=== PATIENT | female | born 1930 | race Caucasian/White ===

== ENCOUNTER → 2018-10-14 | Outpatient (CLI) | payer MEDICARE ==
--- NOTE | 2018-10-15 11:28 | CT ---
EXAM DESCRIPTION: Lumbar Spine: Computed Tomography. CLINICAL HISTORY: 88 years Female LOW BACK PAIN COMPARISON: None Available. TECHNIQUE: Spiral, axial 2.5 x 2.5 mm scans through the lumbarspine without contrast. Change [place] sagittal 2.0 mm Reconstructions. Total Exam DLP: 265.81 mGy-cm. This exam was performed according to our departmental dose-optimization program which includes automated exposure control, adjustment of the mA and/or kV according to patient size and/or use of iterative reconstruction technique; to reduce radiation dose to as low as reasonably achievable (ALARA). FINDINGS: The mid L5-S1 disc space can be visualized on axial series 2, image 67. Bilateral moderate hypertrophic facet arthrosis and flavum ligament thickening. Posterior midline 3 mm disc bulge. AP canal diameter 10 mm. Mild bilateral foraminal narrowing more right than left. L4-L5: Advanced disc space loss mid and right side with moderate disc space loss on the left. Trace retrolisthesis. Posterior disc osteophyte tiny bulge into the canal. Advanced bilateral hypertrophic facet arthrosis and flavum ligament thickening. AP canal diameter 10 mm. Disc is abutting the right subarticular recess and the descending right L5 nerve. Disc osteophyte encroachment on the right foramen with mild to moderate narrowing. Mild narrowing of the left foramen. L3-L4: Trace retrolisthesis with posterior broad-based 4 mm bulge, more to the right of midline. Hypertrophic facet arthrosis and ligament thickening more on the right than left. AP canal diameter 6 mm. Disc bulging effacing the right subarticular recess and impressing on the descending right L4 nerve. Moderate to severe right foraminal narrowing with left foramen patent. L2-L3: Moderate narrowing to the left of midline with disc osteophyte complex encroaching on the left foramen which is moderately narrowed. Posterior disc bulge 5 mm effacing the thecal sac and the left subarticular recess and descending left L3 nerve. Bilateral hypertrophic facet arthrosis and thickening of the ligaments. AP canal diameter 7 mm. Mild narrowing of the right foramen. L1-L2: Minimal disc space loss to the left of midline with small disc osteophyte complex encroaching on the left foramen without stenosis. Right foramen unremarkable. Minimal posterior disc bulge. Bilateral mild hypertrophic facet arthrosis and thickening of the ligaments. AP canal diameter 13 mm. T12-L1: Disc space maintained with no significant disc bulge. Posterior elements unremarkable. Canal and bilateral foramina are patent. T12-L3 dextroscoliosis. Bone density slightly decreased. No compression type vertebral body fractures. 3.5 mm cyst in the upper pole of the right kidney. 3 mm stone in the superior collecting system of the left kidney and similar sized stone in the mid collecting system. Moderate arthroscopic calcification of the abdominal aorta. IMPRESSION: 1. Multiple levels of endplate spondylosis, disc space loss and bulging discs, hypertrophic facet arthrosis and flavum ligament hypertrophy, and bony narrowing of the bilateral foramina. 2. Borderline mild central canal stenosis at L5-S1 is multifactorial. Mild bilateral foraminal narrowing. 3. Advanced spondylosis on the right with disc osteophyte bulge effacing the right subarticular recess and descending right L5 nerve. Multifactorial mild central canal stenosis. Mild to moderate narrowing of the right foramen. 4. Multifactorial severe central canal stenosis at L3-4. Disc osteophyte bulge effacing the right subarticular recess and impressing on the descending right L4 nerve. Moderate to severe right foraminal narrowing. 5. Left posterior disc osteophyte bulge at L2-3 effacing the left subarticular recess and descending left L3 nerve. Moderate to severe multifactorial central canal stenosis. Moderate narrowing of the left foramen. 6. 3.5 mm cyst upper pole right kidney. 2 nonobstructing stones in the left kidney. Electronically signed by: Arnie Belcher MD 10/15/2018 11:27 AM CDT
== END ==
LOC: CT 12:02
PROVIDERS: ATTEND Family Medicine
DX: M47.896 Other spondylosis, lumbar region (principal); M48.062 Spinal stenosis, lumbar region with neurogenic claudication; M48.07 Spinal stenosis, lumbosacral region; M25.78 Osteophyte, vertebrae; N28.1 Cyst of kidney, acquired; N20.0 Calculus of kidney

== ENCOUNTER 2019-11-16 11:24 | Emergency (ER) | payer MEDICARE ==
[2019-11-16] MEDS ORDERED: ASPIRIN TABLET 325 MG TAB PO ONE (11:36)
[2019-11-16] MEDS ORDERED: NITROGLYCERIN 0.4 MG 25 EA TAB SL ONE (11:37)
--- NOTE | 2019-11-16 11:41 | ED.PDOC ---
History of Present Illness - General Time Seen by Provider: 11/16/19 11:36 Source: patient, RN notes reviewed, Vital Signs reviewed Additional Information: 89 -year-old female,, but patient has a pacemaker which was put in because after having a surgery she stated that her heart gave up, the ER because of chest tightness with ideation to the left arm with some headaches nausea and shortness of breath, patient denies fever or chills. Patient was on her way to when the chest tightness began, patient denies previous heart attacks denies any cardiac stents It happened when she was on her way to see the eye doctor pain lasted Less than 20 minutes - History of Present Illness Allergies/Adverse Reactions: Allergies NO KNOWN ALLERGY Allergy (Verified 11/16/19 11:52) Home Medications: Ambulatory Orders Carbidopa/Levodopa 25/250 [Sinemet 25/250] 250 mg PO TID 11/16/19 Levothyroxine Sodium 75 mcg PO DAILY 11/16/19 Meloxicam 7.5 mg PO DAILY 11/16/19 Multiple Vitamin [Multivitamin] 1 tab PO DAILY 11/16/19 Ropinirole Hydrochloride [Ropinirole HCl] 1 mg PO TID 11/16/19 Review of Systems - Review of Systems Constitutional: States: no symptoms reported EENTM: States: no symptoms reported Respiratory: States: short of breath Cardiology: States: chest pain Gastrointestinal/Abdominal: States: nausea, vomiting Genitourinary: States: no symptoms reported Musculoskeletal: States: no symptoms reported Skin: States: no symptoms reported Neurological: States: no symptoms reported, headache Endocrine: States: no symptoms reported Hematologic/Lymphatic: States: no symptoms reported Family Medical History - Family History Mother Family History: Unknown Living Status: Physical Exam - Physical Exam General Appearance: Agitated, Alert, Well Developed, Well Groomed, Well Hydrated, Well Nourished Eyes, Ears, Nose, Throat Exam: PERRL/EOMI, normal ENT inspection, TMs normal Neck: non-tender, full range of motion, supple, normal inspection Respiratory: chest non-tender, lungs clear, normal breath sounds, no respiratory distress, no accessory muscle use Cardiovascular/Chest: normal peripheral pulses, regular rate, rhythm, no edema, no gallop, no JVD, no murmur Peripheral Pulses: radial,right: 2+, radial,left: 2+ Gastrointestinal/Abdominal: normal bowel sounds, non tender, soft, no organomegaly, no pulsatile mass Extremity: normal range of motion, non-tender, normal inspection, no pedal edema, no calf tenderness Neurologic: yacht hand II-XII nml as tested, no motor/sensory deficits, alert, normal mood/affect, oriented x 3 Skin Exam: normal color Lymphatic: no adenopathy Progress - Progress Progress: , Presents to the ER because of chest pain, patient was in route to see her eye doctor, but noticed left eye having the chest pain she describes as chest tightness, with shortness of breath the pain he radiates to the left arm, lasting less than 20 minutes, patient does have a pacemaker no previous history of heart attacks or stroke. Patient EKG did not show any acute ischemic changes, first her troponins were negative BNP negative and a chest x-ray that did not show any evidence of widened mediastinum to suggest aortic dissection, but given patient's risk factor for acute coronary syndrome, I think that she would benefit from admission to the hospital for chest pain work-up, family and patient are requesting to be transferred to [place] since they do not live in this area, and patient population health manager is also from [place]. 11/16/19 13:33 Departure - Departure Clinical Impression: Chest pain Disposition: Transfer to Hospital Condition: Fair Referrals: Benny Rojo III, MD [Primary Care Provider] - 1-2 Weeks Home Medications: Ambulatory Orders Carbidopa/Levodopa 25/250 [Sinemet 25/250] 250 mg PO TID 11/16/19 Levothyroxine Sodium 75 mcg PO DAILY 11/16/19 Meloxicam 7.5 mg PO DAILY 11/16/19 Multiple Vitamin [Multivitamin] 1 tab PO DAILY 11/16/19 Ropinirole Hydrochloride [Ropinirole HCl] 1 mg PO TID 11/16/19 Transfer to Outside Facility - Transfer Information Decision to Transfer Date: 11/16/19 Decision to Transfer Time: 13:32 Reason for Transfer: family request Accepting Facility: [facility]
--- NOTE | 2019-11-16 12:20 | RAD ---
EXAM DESCRIPTION: Chest,1 View CLINICAL HISTORY: chest pain FINDINGS/ IMPRESSION: Heart size is normal. Mildly tortuous atherosclerotic aorta. Normal mediastinal contours otherwise No pulmonary edema, infiltrate or effusion No pneumothorax. No acute bony abnormality Electronically signed by: Ryan Chery MD 11/16/2019 12:18 PM CDT
[2019-11-16 14:43] VITALS: BP 130/75; TEMP 97.1; O2SAT 98
== END 2019-11-16 14:46 | disposition short-term general hospital (02) ==
LOC: ER 11:24
DX: R07.89 Other chest pain (principal); R06.02 Shortness of breath; R51 Headache; R11.2 Nausea with vomiting, unspecified; Z95.0 Presence of cardiac pacemaker; Z79.899 Other long term (current) drug therapy